=== PATIENT | female | born 1970 | race Two or more races ===

== ENCOUNTER 2016-09-06 09:55 | Emergency (ER) | payer OTHER ==
[~2016-09-06] VITALS: Ht 170.2 cm; Wt 89.8 kg
[~2016-09-06 09:55] MED LIST: VITAMIN SUPPLEMENTS
--- NOTE | 2016-09-06 10:05 | NUR ---
Self present to ed due to dizziness x 2 weeks. pt is aao4, appears in no acute distress, respiration even and unlabored,. Denies chest pain, no sob,. pt afebrile. vss. pt with hx of vertigo. will cont to monitor
[2016-09-06] MEDS ORDERED: IV NS 0.9% 1,000 ML ONE (10:10)
[2016-09-06] MEDS ORDERED: MECLIZINE HCL 25 MG TABLET ONE (10:10)
[2016-09-06] MEDS ORDERED: IV SET PRIMARY PUMP SET 1 EA INFUS.SET MC ONE (10:10)
[2016-09-06] MEDS ORDERED: ONDANSETRON HCL/PF 4 MG/2 ML VIAL ONE (10:10)
--- NOTE | 2016-09-06 10:21 | NUR ---
IV ACCESS STARTED. BLOOD DRAWN FOR LABS, MEDICATED ORDERED.
[2016-09-06] MEDS ORDERED: MAGN400T26 PO (10:25)
[2016-09-06] MEDS ORDERED: IBUP-23 PO (10:25)
[2016-09-06] MEDS ORDERED: CALC500T52 PO (10:25)
[2016-09-06 10:28] LABS: BASOPHILS # (AUTO) 0.2 /CMM (0.0-0.2); BASOPHILS % (AUTO) 1.8 % (0.0-2.0); EOSINOPHILS # (AUTO) 0.2 /CMM (0.0-0.7); EOSINOPHILS % (AUTO) 1.4 % (0.0-6.0); HEMATOCRIT 43 % (33-45); HEMOGLOBIN 14.8 g/dL (11.5-14.8); LYMPHOCYTES # (AUTO) 2.9 /CMM (0.8-4.8); LYMPHOCYTES % (AUTO) 27.2 % (20.0-44.0); MEAN CORPUSCULAR HEMOGLOBIN 31 PG (26.0-33.0); MEAN CORPUSCULAR HGB CONC 34 g/dl (31.0-36.0); MEAN CORPUSCULAR VOLUME 90 fL (82-100); MONOCYTES # (AUTO) 0.6 /CMM (0.1-1.30); MONOCYTES % (AUTO) 5.5 % (2.0-12.0); NEUTROPHILS # (AUTO) 6.9 /CMM (1.8-8.9); NEUTROPHILS % (AUTO) 64.1 % (43.0-81.0); PLATELET COUNT (AUTO) 181 /CMM (150-450); RDW COEFFICIENT OF VARIATION 12.3 (11.5-15.0); WHITE BLOOD COUNT (AUTO) 10.8 K/uL (4.3-11.0)
[2016-09-06] MEDS ORDERED: IV NS 0.9% 1,000 ML BAG IV ONE (10:30)
[2016-09-06] MEDS ORDERED: MECLIZINE HCL 12.5 MG TABLET PO ONE (10:30)
[2016-09-06] MEDS ORDERED: ONDANSETRON HCL/PF 4 MG/2 ML VIAL IVP ONE (10:30)
[2016-09-06 10:38] LABS: CARBON DIOXIDE 27 mmol/L (21-32); CHLORIDE 104 mmol/L (98-107); CREATININE 0.9 mg/dL (0.6-1.3); GFR 67 mL/min (>60); GLUCOSE 97 mg/dL (74-106); SODIUM SERUM 139 mmol/L (136-145); UREA NITROGEN, BLOOD 15 mg/dL (7-18)
[2016-09-06 10:44] LABS: ALANINE AMINOTRANSFERASE 32 U/L (12-78); ALBUMIN 3.9 g/dL (3.4-5.0); ALKALINE PHOSPHATASE 91 U/L (46-116); ASPARTATE AMINOTRANSFERASE 22 U/L (15-37); BILIRUBIN,DIRECT 0.1 mg/dL (0.0-0.2); BILIRUBIN,TOTAL 0.3 mg/dL (0.2-1.0); TOTAL PROTEIN, SERUM 7.2 g/dL (6.4-8.2)
[2016-09-06 10:46] LABS: TROPONIN I < 0.017 ng/mL (0.00-0.056)
[2016-09-06 11:17] VITALS: BP 120/88
--- NOTE | 2016-09-06 11:17 | NUR ---
Patient discharged to home in stable condition. Written and verbal after care instructions given. Patient verbalizes understanding of instruction.IV removed. Catheter intact and site benign. Pressure and 4x4 applied to site. No bleeding noted.
== END 2016-09-06 11:18 | disposition home or self-care (01) ==
LOC: ER 09:57
DX: R42 Dizziness and giddiness (principal); F41.9 Anxiety disorder, unspecified; F32.9 Major depressive disorder, single episode, unspecified; J45.909 Unspecified asthma, uncomplicated; F10.20 Alcohol dependence, uncomplicated; F17.200 Nicotine dependence, unspecified, uncomplicated; Z88.8 Allergy status to other drugs, medicaments and biological substances
CPT/HCPCS: 36415; 70450; 71010; 80048; 80076; 84484; 85025; 93005; 96361; 96374; 99285; A4606; J2405; J7030; J8597; Z7610

== ENCOUNTER 2018-08-31 08:24 | Emergency (ER) | payer OTHER ==
[~2018-08-31] VITALS: Ht 167.6 cm; Wt 91.2 kg
[~2018-08-31 08:24] MED LIST changes: +CALC500T52 PO; +IBUP-23 PO; +MAGN400T26 PO; -VITAMIN SUPPLEMENTS
--- NOTE | 2018-08-31 08:36 | NUR ---
patient presented to the ER from home c/o right hip and leg pain. on room air, breathing evenly and unlabored. kept comfortable. will continue to monitor accordingly.
[2018-08-31] MEDS ORDERED: MORPHINE SULFATE INJ 2 MG/ML DISP.SYRIN IM ONE (09:00)
[2018-08-31] MEDS ORDERED: MORPHINE SULFATE INJ 4 MG/ML DISP.SYRIN ONE (09:03)
[2018-08-31] MEDS ORDERED: ONDANSETRON 4 MG TAB.RAPDIS ONE (09:50)
[2018-08-31] MEDS ORDERED: HYDROMORPHONE 1 MG/1 ML DISP.SYRIN ONE (09:50)
[2018-08-31] MEDS ORDERED: HYDROMORPHONE INJ 0.5 MG/0.5 ML SYRINGE IM ONE (10:00)
[2018-08-31] MEDS ORDERED: KETOROLAC TROMETHAMINE INJ 60 MG/2 ML VIAL IM ONE ×2 (10:07→10:30)
--- NOTE | 2018-08-31 10:17 | NUR ---
Patient given Toradol on right arm. Patient discharged to home in stable condition. Written and verbal after care instructions given. Patient verbalizes understanding of instruction.
[2018-08-31 10:19] VITALS: BP 135/96
[2018-08-31] MEDS ORDERED: ONDANSETRON 4 MG TAB.RAPDIS SL ONE (10:30)
== END 2018-08-31 10:20 | disposition home or self-care (01) ==
LOC: ER 08:24
DX: M54.41 Lumbago with sciatica, right side (principal); J45.909 Unspecified asthma, uncomplicated; F32.9 Major depressive disorder, single episode, unspecified; F41.9 Anxiety disorder, unspecified; F10.10 Alcohol abuse, uncomplicated; F17.200 Nicotine dependence, unspecified, uncomplicated; Y90.9 Presence of alcohol in blood, level not specified; Z98.890 Other specified postprocedural states; Z85.41 Personal history of malignant neoplasm of cervix uteri; Z88.6 Allergy status to analgesic agent
CPT/HCPCS: 96372 ×3; 99283; A4606; J1170; J1885; J2270; Q0162

== ENCOUNTER 2019-09-09 15:59 | Emergency (ER) | payer OTHER ==
[~2019-09-09] VITALS: Ht 170.2 cm; Wt 90.7 kg
--- NOTE | 2019-09-09 16:01 | NUR ---
CALLED TO TRIAGE,NO ANSWER
--- NOTE | 2019-09-09 16:20 | NUR ---
Called NO response
[2019-09-09] MEDS ORDERED: MECLIZINE HCL 25 MG TABLET PO ONE (17:30)
[2019-09-09] MEDS ORDERED: MECLIZINE HCL 25 MG TABLET ONE (17:37)
[2019-09-09 17:52] LABS: BASOPHILS # (AUTO) 0.1 /CMM (0.0-0.2); BASOPHILS % (AUTO) 0.8 % (0.0-2.0); EOSINOPHILS % (AUTO) 1.7 % (0.0-6.0); HEMATOCRIT 44 % (33-45); HEMOGLOBIN 14.7 g/dL (11.5-14.8); LYMPHOCYTES # (AUTO) 3.5 /CMM (0.8-4.8); LYMPHOCYTES % (AUTO) 28.8 % (20.0-44.0); MEAN CORPUSCULAR HGB CONC 34 g/dl (31.0-36.0); MEAN CORPUSCULAR VOLUME 92 fL (82-100); MONOCYTES % (AUTO) 7.8 % (2.0-12.0); NEUTROPHILS # (AUTO) 7.5 /CMM (1.8-8.9); NEUTROPHILS % (AUTO) 60.9 % (43.0-81.0); PLATELET COUNT (AUTO) 206 /CMM (150-450); RED BLOOD CELL COUNT(AUTO) 4.74 MIL/uL (4.0-5.2); WHITE BLOOD COUNT (AUTO) 12.3 K/uL (4.3-11.0)
[2019-09-09 18:02] LABS: CALCIUM, SERUM 9.6 mg/dL (8.5-10.1); CREATININE 0.9 mg/dL (0.6-1.3)
[2019-09-09 18:07] LABS: ALBUMIN 4.1 g/dL (3.4-5.0); BILIRUBIN,DIRECT 0.1 mg/dL (0.0-0.2); BILIRUBIN,TOTAL 0.3 mg/dL (0.2-1.0); TOTAL PROTEIN, SERUM 7.3 g/dL (6.4-8.2)
[2019-09-09 18:32] VITALS: BP 119/68
== END 2019-09-09 18:53 | disposition home or self-care (01) ==
LOC: ER 16:14
DX: H81.10 Benign paroxysmal vertigo, unspecified ear (principal); R11.0 Nausea; M25.512 Pain in left shoulder; F17.210 Nicotine dependence, cigarettes, uncomplicated; J44.9 Chronic obstructive pulmonary disease, unspecified; Z85.41 Personal history of malignant neoplasm of cervix uteri; Z98.890 Other specified postprocedural states; Z79.899 Other long term (current) drug therapy; Z88.8 Allergy status to other drugs, medicaments and biological substances
CPT/HCPCS: 36415; 71045; 80048; 80076; 84484; 93005; 85025; 99285; 99406; J8597